=== PATIENT | male | born 1955 | race Caucasian/White ===

== ENCOUNTER 2019-02-20 09:47 | Day surgery (SDC) | payer MEDICARE, OTHER ==
[~2019-02-20] VITALS: Ht 177.8 cm; Wt 90.7 kg
[~2019-02-20 09:47] MED LIST: TRAMADOL HCL50 MG PO; VITAMIN B-1100 M1 PO; VITAMIN D310000 UNI1 PO
[2019-02-20] MEDS ORDERED: PERCOCET 5/325M1 TAB PO (13:09)
[2019-02-20 13:40] VITALS: BP 147/84
== END 2019-02-20 13:45 | disposition home or self-care (01) ==
LOC: ORM 09:47
PROVIDERS: ATTEND Surgery
PROC: 0JBG0ZZ Excision of Right Lower Arm Subcutaneous Tissue and Fascia, Open Approach (ICD-10-PCS; principal; 2019-02-20)
PROC: 0DBN8ZX Excision of Sigmoid Colon, Via Natural or Artificial Opening Endoscopic, Diagnostic (ICD-10-PCS; 2019-02-20)
DX: Z12.11 Encounter for screening for malignant neoplasm of colon (principal); D12.5 Benign neoplasm of sigmoid colon; K64.8 Other hemorrhoids; C44.619 Basal cell carcinoma of skin of left upper limb, including shoulder; L57.0 Actinic keratosis; L81.4 Other melanin hyperpigmentation; Z86.010 Personal history of colon polyps

== ENCOUNTER 2024-08-25 12:48 | Emergency (ER) | payer MEDICARE, OTHER ==
[~2024-08-25] VITALS: Ht 175.3 cm; Wt 54.0 kg
[~2024-08-25 12:48] MED LIST changes: +PERCOCET 5/325M1 TAB PO; +SILDENAFIL20 MG PO
[2024-08-25] MEDS ORDERED: OXYCOD-APAP1 TA1 PO (13:07)
[2024-08-25] MEDS ORDERED: TETRACAINE HCL 0.5 %/4 ML SOL OD ONE (13:20)
[2024-08-25] MEDS ORDERED: FLUORESCEIN SODIUM 1 MG EA OU ONE (13:20)
[2024-08-25] MEDS ORDERED: CIPROFLOXACN0.3 % TOP (16:27)
[2024-08-25 17:10] VITALS: BP 157/92
== END 2024-08-25 16:44 | disposition home or self-care (01) ==
LOC: ED 12:48
DX: H57.11 Ocular pain, right eye (principal)